=== PATIENT | female | born 1940 | race Caucasian/White ===

== ENCOUNTER → 2016-06-09 | Outpatient (CLI) | payer MEDICARE ==
--- NOTE | 2016-06-09 12:42 | RAD ---
Right shoulder, 3 views, 06/09/2016: History: Pain, arthritis There is severe narrowing of the glenohumeral joint with subchondral sclerosis, cyst formation and spurring. There are also degenerative changes at rotator cuff insertion sites on the greater tuberosity. There is mild subacromial spurring. No fracture or dislocation is identified. IMPRESSION: 1. Severe degenerative change. 2. No acute bony abnormality is detected.
== END | disposition home or self-care (01) ==
LOC: DXRAD 11:55
PROVIDERS: ATTEND Orthopaedic Surgery
DX: M25.511 Pain in right shoulder (principal); M19.011 Primary osteoarthritis, right shoulder
CPT/HCPCS: 73030

== ENCOUNTER 2016-08-01 12:24 | Inpatient (IN) | payer MEDICARE ==
[~2016-08-01] VITALS: Ht 171.4 cm; Wt 161.6 kg
[2016-08-01 12:59] VITALS: BP 178/68
[2016-08-01 13:00] VITALS: BP 178/68
[2016-08-01] MEDS ORDERED: CLON0.1T PO (14:03)
[2016-08-01] MEDS ORDERED: GABA-586 PO (14:04)
[2016-08-01] MEDS ORDERED: FURO40TA4 PO (14:04)
[2016-08-01] MEDS ORDERED: SIMV20TA3 PO (14:05)
[2016-08-01] MEDS ORDERED: LEVO200T5 PO (14:05)
[2016-08-01] MEDS ORDERED: GLIM2TAB2 PO (14:05)
[2016-08-01 14:06] LABS: BASO % 0 % (0-3); EOS # 0.1 x10^3/uL (0.0-0.7); EOS % 2 % (0-3); HEMATOCRIT 36.7 % (36.0-47.0); HEMOGLOBIN 12.5 g/dL (12.0-15.5); LYMPH # 0.9 x10^3/uL (1.0-4.8); LYMPH % 14 % (24-48); MEAN CORPUSCULAR HEMOGLOBIN 32 pg (25-35); MEAN CORPUSCULAR HGB CONC 34 g/dL (31-37); MEAN CORPUSCULAR VOLUME 93 fL (79-100); MONO # 0.5 x10^3/uL (0.0-1.1); MONO % 7 % (0-9); NEUT # 4.9 x10^3uL (1.8-7.7); NEUT % 77 % (31-73); PLATELET COUNT 209 x10^3/uL (140-400); RED BLOOD COUNT 3.95 x10^6/uL (3.50-5.40); RED CELL DISTRIBUTION WIDTH 13.4 % (11.5-14.5); WHITE BLOOD COUNT 6.4 x10^3/uL (4.0-11.0)
[2016-08-01] MEDS ORDERED: ALBU18HF IH (14:06)
[2016-08-01] MEDS ORDERED: MULT1TAB52 PO (14:06)
[2016-08-01] MEDS ORDERED: FISH12002 PO (14:06)
[2016-08-01] MEDS ORDERED: ALBU2.5V5 NEB (14:07)
[2016-08-01] MEDS ORDERED: METO50TA2 PO (14:09)
[2016-08-01] MEDS ORDERED: TRAM1TAB4 PO (14:09)
[2016-08-01 14:24] LABS: ALBUMIN 3.4 g/dL (3.4-5.0); CALCIUM 8.8 mg/dL (8.5-10.1); CREATININE 1.1 mg/dL (0.6-1.0); GFR 48.6; TOTAL BILIRUBIN 0.4 mg/dL (0.2-1.0); TOTAL PROTEIN 6.7 g/dL (6.4-8.2)
[2016-08-01] MEDS ORDERED: traMADol/APAP 37.5/325 1 TAB TABLET PO PRN (14:30)
[2016-08-01] MEDS ORDERED: ALBUTEROL SULFATE 2.5 MG/3 ML NEBU. NEB SCH (14:30)
[2016-08-01] MEDS ORDERED: ALBUTEROL SULFATE 8GM INHALER. IH PRN (14:30)
--- NOTE | 2016-08-01 14:41 | RAD ---
Indication: COPD and shortness of breath. Time of exam 1506 hours. Correlation is made with prior chest from 04/17/2016. The heart size is stable. Lungs are clear. No infiltrates are detected. No effusion or pneumothorax is seen. Impression: Stable chest. No acute feature is detected.
[2016-08-01] MEDS: GABAPENTIN 300 MG CAPSULE. PO SCH ×2 (15:14→21:05)
[2016-08-01 15:16] LABS: CLARITY,URINE CLEAR; COLOR,URINE YELLOW; GLUCOSE,URINE NEG (NEG)
[2016-08-01 15:17] LABS: BILIRUBIN,URINE NEG (NEG); NITRITE,URINE NEG (NEG); RBC,URINE 0 /HPF (0-2); UROBILINOGEN,URINE 0.2 mg/dL (0.2 mg/dL)
[2016-08-01 15:18] LABS: BGAS PH 7.37 (7.35-7.45)
[2016-08-01 15:18] LABS: BACTERIA,URINE 0 /HPF (0-FEW); SQUAMOUS EPITHELIAL CELL,UR OCC /LPF
[2016-08-01 15:48] VITALS: BP 139/53
[2016-08-01] MEDS ORDERED: IOHEXOL 300 MG/ML 75 ML VIAL. IV ONE (16:15)
--- NOTE | 2016-08-01 16:21 | EKG ---
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 RI6.01 Unconfirmed report No previous ECG available for comparison Electronically Signed On 08-05-2016 9:43:14 CDT by Diaz Tompkins
--- NOTE | 2016-08-01 17:16 | RAD ---
PQRS Compliance Statement: One or more of the following individualized dose reduction techniques were utilized for this examination: 1. Automated exposure control 2. Adjustment of the mA and/or kV according to patient size 3. Use of iterative reconstruction technique CT CHEST WITH CONTRAST, PULMONARY ANGIOGRAM History: Short of Breath, hx of COPD Comparison: None. Technique: Helical CT of the chest was performed after the administration of 75ml IV Omni 300 intravenous contrast according to PE protocol. Axial and coronal reconstructions were obtained. 3-D MIP images were constructed to better evaluate the pulmonary arteries. Findings: Pulmonary arteries are adequately opacified to the segmental pulmonary artery level. There is no evidence of pulmonary embolism. Subsegmental pulmonary arteries are not well evaluated. There is no thoracic aortic dissection. The great vessels are normal in caliber. Question left thyroid nodule. Right thyroid lobe not definitely seen. No axillary adenopathy. No mediastinal adenopathy. Subcentimeter hilar lymph nodes. Coronary artery disease. Mild cardiomegaly. No pericardial effusion. No pleural effusion. Left posterior inferior calcified pleural plaque. Minimal dependent opacities in the trachea, probably retained secretions or mucous. Mild respiratory motion artifact. Mild scarring or atelectasis medially in the right middle lobe. Mild groundglass and linear opacities in the posterior left lower lobe may be atelectasis or early bronchopneumonia. Cholecystectomy. There is left adrenal mass measuring 5.3 x 3.4 cm. The mass contains macroscopic fat and is therefore compatible with a myelolipoma. No compression fracture in the thoracic spine is identified. IMPRESSION: 1. There is no CT evidence of pulmonary embolus to the segmental pulmonary artery level. 2. Question left thyroid nodule. Consider outpatient thyroid ultrasound if not previously performed. 3. Mild groundglass and linear opacities in the posterior left lower lobe may be atelectasis or early bronchopneumonia or scarring. 4. Mild cardiomegaly. 5. Left adrenal myelolipoma. Electronically signed by: Adolfo Freedman MD (08/01/2016 5:13 PM)
[2016-08-01 18:20] VITALS: BP 146/77
[2016-08-01] MEDS ORDERED: cefTRIAXone SODIUM 1 GM VIAL IV ONE (18:32)
[2016-08-01] MEDS ORDERED: IV NORMAL SALINE 50ML 50 ML ONE (18:32)
[2016-08-01] MEDS ORDERED: IV NORMAL SALINE 250ML 250 ML ONE (18:35)
[2016-08-01] MEDS: IPRATRPIUM/ALBUTEROL 0.5/2.5MG 3 ML NEBU. NEB SCH (20:06)
[2016-08-01] MEDS: ENOXAPARIN ** NOTE DOSE ** SYRINGE SQ SCH (21:04)
[2016-08-01] MEDS: cloNIDine HCL 0.1 MG TABLET PO SCH (21:05)
[2016-08-01] MEDS: METOPROLOL TART IMMED RELEASE 50 MG TABLET PO SCH (21:05)
[2016-08-01] MEDS: SIMVASTATIN 20 MG TABLET PO SCH (21:05)
[2016-08-01 23:43] VITALS: BP 119/69
[2016-08-02 05:13] VITALS: BP 105/60
[2016-08-02] MEDS: IPRATRPIUM/ALBUTEROL 0.5/2.5MG 3 ML NEBU. NEB SCH ×4 (05:49→20:14)
[2016-08-02 06:59] LABS: BASO % 0 % (0-3); EOS # 0.1 x10^3/uL (0.0-0.7); EOS % 2 % (0-3); HEMATOCRIT 36.3 % (36.0-47.0); HEMOGLOBIN 12.5 g/dL (12.0-15.5); LYMPH # 1.6 x10^3/uL (1.0-4.8); LYMPH % 27 % (24-48); MEAN CORPUSCULAR HEMOGLOBIN 32 pg (25-35); MEAN CORPUSCULAR HGB CONC 35 g/dL (31-37); MEAN CORPUSCULAR VOLUME 93 fL (79-100); MONO # 0.5 x10^3/uL (0.0-1.1); MONO % 8 % (0-9); NEUT # 3.8 x10^3uL (1.8-7.7); NEUT % 63 % (31-73); PLATELET COUNT 193 x10^3/uL (140-400); RED BLOOD COUNT 3.91 x10^6/uL (3.50-5.40); RED CELL DISTRIBUTION WIDTH 13.2 % (11.5-14.5)
[2016-08-02 07:05] LABS: CALCIUM 8.5 mg/dL (8.5-10.1); CREATININE 1.1 mg/dL (0.6-1.0); GFR 48.6; POTASSIUM 3.5 mmol/L (3.5-5.1)
[2016-08-02] MEDS: LEVOTHYROXINE 100 MCG TABLET PO SCH (07:24)
[2016-08-02] MEDS ORDERED: PNEUMOC CONJ VACC 23-VALENT 0.5 ML VIAL. VAX IM ONE (09:00)
[2016-08-02] MEDS: ENOXAPARIN ** NOTE DOSE ** SYRINGE SQ SCH ×2 (09:04→19:54)
[2016-08-02] MEDS: GABAPENTIN 300 MG CAPSULE. PO SCH ×3 (09:06→19:53)
[2016-08-02] MEDS: FUROSEMIDE 40 MG TABLET PO SCH (09:06)
[2016-08-02] MEDS: cloNIDine HCL 0.1 MG TABLET PO SCH ×2 (09:07→19:53)
[2016-08-02] MEDS: OMEGA-3 FATTY ACIDS/FISH OIL 1,000 MG CAPSULE. PO SCH (09:08)
[2016-08-02] MEDS: METOPROLOL TART IMMED RELEASE 50 MG TABLET PO SCH ×2 (09:08→19:53)
[2016-08-02] MEDS: MULTIVITAMIN with MINERAL TABLET. PO SCH (09:08)
[2016-08-02] MEDS: GLIMEPIRIDE 2 MG TABLET PO SCH (09:08)
[2016-08-02 10:01] VITALS: BP 117/81
[2016-08-02 14:52] VITALS: BP 149/66
[2016-08-02 19:46] VITALS: BP 131/71
[2016-08-02] MEDS: SIMVASTATIN 20 MG TABLET PO SCH (19:52)
[2016-08-02 22:03] VITALS: BP 138/72
[2016-08-02] MEDS: OXYMETAZOLINE 0.05% NASAL SPRAY 15ML BOTTLE. NS PRN (22:09)
--- NOTE | 2016-08-03 00:20 | PN ---
DATE: 08/02/2016 SUBJECTIVE: A 76-year-old female in with acute respiratory failure, positive D-dimer. CTA negative, may have pneumonic process; however, the patient continues on IV antibiotic therapy, aggressive pulmonary toilet. The patient did have positive lactic acid, was septic, that has come down. Blood sugars in the 150s. Blood counts were basically stable as was her urine. In any case, the patient made good progress, has been making fairly good progress, still coarse breath sounds throughout. She is alert and oriented, feels a little better overall. OBJECTIVE: VITAL SIGNS: The patient's blood pressure is 120/80, respiratory rate 16, pulse 90, afebrile, oxygen saturation up to 96% on 3 liters. LUNGS: Show coarse breath sounds throughout, rhonchi noted throughout, but moving some air. CARDIOVASCULAR: Regular sinus rhythm. ABDOMEN: Soft, nontender. EXTREMITIES: No clubbing, cyanosis or edema. IMPRESSION: Bronchial pneumonia, sepsis, acute respiratory failure. PLAN: As above. YARI MANCUSO MD DR: SANTINO/latha JOB#: [id number] / [id number]
[2016-08-03] MEDS: LEVOTHYROXINE 100 MCG TABLET PO SCH (05:33)
[2016-08-03 05:35] VITALS: BP 151/66
[2016-08-03] MEDS: IPRATRPIUM/ALBUTEROL 0.5/2.5MG 3 ML NEBU. NEB SCH ×4 (05:55→22:12)
[2016-08-03] MEDS: cloNIDine HCL 0.1 MG TABLET PO SCH ×2 (08:37→21:11)
[2016-08-03] MEDS: MULTIVITAMIN with MINERAL TABLET. PO SCH (08:37)
[2016-08-03] MEDS: FUROSEMIDE 40 MG TABLET PO SCH (08:37)
[2016-08-03] MEDS: METOPROLOL TART IMMED RELEASE 50 MG TABLET PO SCH ×2 (08:37→21:11)
[2016-08-03] MEDS: GLIMEPIRIDE 2 MG TABLET PO SCH (08:37)
[2016-08-03] MEDS: GABAPENTIN 300 MG CAPSULE. PO SCH ×3 (08:37→21:10)
[2016-08-03] MEDS: OMEGA-3 FATTY ACIDS/FISH OIL 1,000 MG CAPSULE. PO SCH (08:37)
[2016-08-03] MEDS: ENOXAPARIN ** NOTE DOSE ** SYRINGE SQ SCH ×2 (08:40→21:11)
[2016-08-03] MEDS: OXYMETAZOLINE 0.05% NASAL SPRAY 15ML BOTTLE. NS PRN ×2 (10:31→21:12)
[2016-08-03 10:41] VITALS: BP 129/69
--- NOTE | 2016-08-03 11:30 | CARD ---
APPROVED REPORT EXAM: Two-dimensional and M-mode echocardiogram with Doppler and color Doppler. Other Information Quality : Fair Technically limited study due to body habitus. INDICATION Dyspnea Respiratory Failure RISK FACTORS Obesity 2D DIMENSIONS RVDd3.0 (2.9-3.5cm)Left Atrium(2D)3.8 (1.6-4.0cm) IVSd1.0 (0.7-1.1cm)Aortic Root(2D)3.2 (2.0-3.7cm) LVDd5.3 (3.9-5.9cm)LVOT Diameter2.5 (1.8-2.4cm) PWd1.2 (0.7-1.1cm)LVDs3.6 (2.5-4.0cm) FS (%) 32.3 %SV81.8 ml LVEF(%)60.1 (>50%) Aortic Valve AoV Peak Adolfo.143.2cm/sAoV VTI30.5cm AO Peak GR.8.2mmHgLVOT Peak Adolfo.100.9cm/s LVOT VTI 26.51cmAO Mean GR.5mmHg BRI (VMAX)3.19rb4RGD (VTI)4.33cm2 Mitral Valve MV E Anidaeau42.0cm/sMV DECEL IIRL678gw MV A Ixmyoipe141.2cm/sE/A Ratio0.7 Tricuspid Valve TR P. Kojoobcl040ol/sRAP CRAEFSIB8isJa TR Peak Gr.91zdHaISQB35gtEh LEFT VENTRICLE The left ventricle is normal size. There is mild concentric left ventricular hypertrophy. Left ventri mann systolic function is low normal. The Ejection Fraction is 50-55%. Wall motion not well visualized . Grossly no obvious abnormalities noted. Transmitral Doppler flow pattern is Grade I-abnormal relaxa tion pattern. RIGHT VENTRICLE The right ventricle is normal size. There is normal right ventricular wall thickness. The right ventr icular systolic function is normal. ATRIA The left atrium size is normal. The right atrium size is normal. The interatrial septum is intact wit h no evidence for an atrial septal defect or patent foramen ovale as noted on 2-D or Doppler imaging. AORTIC VALVE The aortic valve is normal in structure and function. Doppler and Color Flow revealed no significant aortic regurgitation. There is no significant aortic valvular stenosis. MITRAL VALVE The mitral valve is calcified but opens well. There is no evidence of mitral valve prolapse. There is no mitral valve stenosis. Doppler and Color Flow revealed no mitral valve regurgitation noted. TRICUSPID VALVE The tricuspid valve is normal in structure and function. Doppler and Color Flow revealed physiologica l tricuspid regurgitation. The PA pressure was estimated at 30 mmHg. There is no tricuspid valve sten osis. PULMONIC VALVE The pulmonic valve is not well visualized. Doppler and Color Flow revealed trace pulmonic valvular re gurgitation. There is no pulmonic valvular stenosis. GREAT VESSELS The aortic root is normal in size. The ascending aorta is not well seen. The IVC is dilated. PERICARDIAL EFFUSION There is no evidence of significant pericardial effusion. Critical Notification Critical Value: No <Conclusion> Left ventricle systolic function is low normal. The Ejection Fraction is 50-55%. Wall motion not well visualized. Grossly no obvious abnormalities noted. Technically difficult study.
[2016-08-03] MEDS: predniSONE 20 MG TABLET PO SCH (18:52)
[2016-08-03 19:28] VITALS: BP 136/77
[2016-08-03] MEDS: SIMVASTATIN 20 MG TABLET PO SCH (21:11)
[2016-08-03 22:34] VITALS: BP 128/72
[2016-08-04] MEDS: LEVOTHYROXINE 100 MCG TABLET PO SCH (05:40)
[2016-08-04 05:49] VITALS: BP 153/69
[2016-08-04] MEDS: IPRATRPIUM/ALBUTEROL 0.5/2.5MG 3 ML NEBU. NEB SCH ×4 (07:17→20:41)
[2016-08-04] MEDS: cloNIDine HCL 0.1 MG TABLET PO SCH ×2 (08:30→21:04)
[2016-08-04] MEDS: MULTIVITAMIN with MINERAL TABLET. PO SCH (08:30)
[2016-08-04] MEDS: predniSONE 20 MG TABLET PO SCH (08:30)
[2016-08-04] MEDS: OMEGA-3 FATTY ACIDS/FISH OIL 1,000 MG CAPSULE. PO SCH (08:30)
[2016-08-04] MEDS: GABAPENTIN 300 MG CAPSULE. PO SCH ×3 (08:30→21:04)
[2016-08-04] MEDS: ENOXAPARIN ** NOTE DOSE ** SYRINGE SQ SCH ×2 (08:30→21:04)
[2016-08-04] MEDS: METOPROLOL TART IMMED RELEASE 50 MG TABLET PO SCH ×2 (08:31→21:04)
[2016-08-04] MEDS: FUROSEMIDE 40 MG TABLET PO SCH (08:31)
[2016-08-04] MEDS: GLIMEPIRIDE 2 MG TABLET PO SCH (08:31)
[2016-08-04 10:38] VITALS: BP 168/79
[2016-08-04 14:37] VITALS: BP 184/79
[2016-08-04 18:30] VITALS: BP 153/65
--- NOTE | 2016-08-04 19:15 | PN ---
DATE: 08/03/2016 SUBJECTIVE: The patient with acute respiratory failure, exacerbation of chronic obstructive pulmonary disease, doing somewhat better, breathing a little bit easier, but still extremely short of breath and still extremely weak. OBJECTIVE: VITAL SIGNS: Blood pressure , respirations 22, pulse 78, afebrile, oxygen saturation 95% on 3 liters. LUNGS: Diminished throughout, poor movement of air, but somewhat improved from where they were. ABDOMEN: Protuberant. CARDIOVASCULAR: Regular sinus rhythm. EXTREMITIES: No clubbing, cyanosis or edema. The patient seems to be making fairly good progress overall. LABORATORY DATA: Blood sugars are in the 100s, still reasonable there. The patient's lactic acid that was elevated has come down into normal range. BNP is 87. IMPRESSION: Acute respiratory failure, acute exacerbation of chronic obstructive pulmonary disease, bronchitis acute. PLAN: The patient continued to be monitored carefully, make further evaluation on her as indicated and continue with IV antibiotic therapy and steroid therapy tapering doses. YARI MANCUSO MD DR: SANTINO/latha JOB#: [id number] / [id number]
[2016-08-04] MEDS: SIMVASTATIN 20 MG TABLET PO SCH (21:04)
[2016-08-04] MEDS: OXYMETAZOLINE 0.05% NASAL SPRAY 15ML BOTTLE. NS PRN (21:07)
--- NOTE | 2016-08-05 03:54 | PN ---
DATE: 08/04/2016 SUBJECTIVE: The patient with acute exacerbation of COPD, acute respiratory failure, doing much better in that regard; however, probably has some type of fistula coming from her umbilical area. Wound care has seen the patient and made recommendations. We are going to be doing a CT scan of her abdomen to look for any fistula likely forming there. Otherwise, the patient is resting fairly comfortably, making fairly good progress overall in that regard. Ejection fraction is 50-55%, making good progress on that. PHYSICAL EXAMINATION: VITAL SIGNS: Blood pressure 170/80, respiratory rate 24, pulse 76, she is afebrile. GENERAL: The patient is alert and oriented. HEENT: Mouth and throat were normal. NECK: Supple. LUNGS: Diminished, but clear than they have been, much better. CARDIOVASCULAR: Regular sinus rhythm. ABDOMEN: Soft, nontender, no rebound or guarding, protuberant. Drainage from the umbilical area consistent with possible fistula. EXTREMITIES: No clubbing or cyanosis. Trace edema. NEUROLOGIC: Intact. IMPRESSION: Bronchial pneumonia of unknown etiology, sepsis, acute respiratory failure, fistula formation of the abdominal wall. PLAN: We will go ahead and continue to monitor the patient accordingly. Further evaluation per those results. Further evaluation on her as indicated. YARI MANCUSO MD DR: SANTINO/latha JOB#: [id number] / [id number]
[2016-08-05] MEDS: LEVOTHYROXINE 100 MCG TABLET PO SCH (05:15)
[2016-08-05] MEDS: IPRATRPIUM/ALBUTEROL 0.5/2.5MG 3 ML NEBU. NEB SCH ×2 (05:40→09:38)
[2016-08-05 05:49] VITALS: BP 133/69
[2016-08-05 06:32] LABS: CALCIUM 8.3 mg/dL (8.5-10.1); CREATININE 0.9 mg/dL (0.6-1.0); GFR 61.2; POTASSIUM 3.5 mmol/L (3.5-5.1)
[2016-08-05] MEDS: FUROSEMIDE 40 MG TABLET PO SCH (08:06)
[2016-08-05] MEDS: MULTIVITAMIN with MINERAL TABLET. PO SCH (08:06)
[2016-08-05] MEDS: predniSONE 20 MG TABLET PO SCH (08:06)
[2016-08-05] MEDS: OMEGA-3 FATTY ACIDS/FISH OIL 1,000 MG CAPSULE. PO SCH (08:06)
[2016-08-05] MEDS: GLIMEPIRIDE 2 MG TABLET PO SCH (08:06)
[2016-08-05] MEDS: GABAPENTIN 300 MG CAPSULE. PO SCH (08:06)
[2016-08-05] MEDS: ENOXAPARIN ** NOTE DOSE ** SYRINGE SQ SCH (08:07)
[2016-08-05] MEDS: METOPROLOL TART IMMED RELEASE 50 MG TABLET PO SCH (08:07)
[2016-08-05] MEDS: cloNIDine HCL 0.1 MG TABLET PO SCH (08:07)
--- NOTE | 2016-08-05 09:20 | RAD ---
Fistulogram, canceled study, 08/05/2016: History: Draining wound The patient presents with an inflamed appearing area in the anterior abdominal wall at the midline with mild skin deformity. There is puckering of the skin with a tiny bubble of fluid in this region. The fluid appears to be emanating from a crevice or crack in the skin. Following cleansing of this area with Betadine attempts were made at cannulation of a possible fistula tract with a 5 Hungarian infant feeding tube. No fistula tract could be encountered or cannulated. A fistulogram is therefore not visible. Sonographic or CT evaluation of this region may be useful in excluding a significant underlying fluid collection, if clinically indicated.
[2016-08-05 10:43] VITALS: BP 147/81
[2016-08-05] MEDS ORDERED: PRED20TA PO (11:59)
[2016-08-05] MEDS ORDERED: levoFLOXacin 500 MG TABLET PO SCH (17:00)
[2016-08-05] MEDS ORDERED: CEFPODOXIME PROXETIL 100 MG TABLET PO SCH (21:00)
--- NOTE | 2016-08-05 22:33 | DS ---
DATE OF DISCHARGE: 08/05/2016 HOSPITAL COURSE: The patient is a 76-year-old female who came in the office with acute respiratory distress, acute respiratory failure. The patient was placed on steroids, IV antibiotic therapy. The patient also had some bronchial pneumonia. She made excellent progress during the rest of her hospitalization. There were no complications noted. Sugars are a little bit on the high side. She does have a history of diabetes. Her D-dimer is elevated. CTA was negative. The patient made good progress. She also was thought to have a fistula above the umbilicus, but we are unable to determine. There was no fistula they could find with fistula induced type of CTA. In any case, the patient made good progress during the rest of her hospitalization. She was discharged home and will be followed up as an outpatient. IMPRESSION: Therefore, acute respiratory failure, acute exacerbation of chronic obstructive pulmonary disease, bronchial pneumonia, acute, type 2 diabetes, morbid obesity. The patient will be monitored as an outpatient, make further evaluation. Her EKG was unremarkable as well. YARI MANCUSO MD DR: SANTINO/latha JOB#: [id number] / [id number]
== END 2016-08-05 13:15 | disposition home health service (06) | DRG 871 ==
LOC: 1 SOUTH 12:24
PROVIDERS: ADMIT Family Medicine; ATTEND Family Medicine
DX: A41.9 Sepsis, unspecified organism (principal); J18.0 Bronchopneumonia, unspecified organism; J96.01 Acute respiratory failure with hypoxia; J44.0 Chronic obstructive pulmonary disease with (acute) lower respiratory infection; J44.1 Chronic obstructive pulmonary disease with (acute) exacerbation; Z68.43 Body mass index [BMI] 50.0-59.9, adult; E11.9 Type 2 diabetes mellitus without complications; E66.01 Morbid (severe) obesity due to excess calories; J20.9 Acute bronchitis, unspecified; I10 Essential (primary) hypertension; E78.00 Pure hypercholesterolemia, unspecified; Z90.710 Acquired absence of both cervix and uterus; Z81.8 Family history of other mental and behavioral disorders; Z83.3 Family history of diabetes mellitus
CPT/HCPCS: 36415; 71020; 71275; 76080; 80048; 80053; 81001; 82803; 82947; 83605; 83880; 85027; 85379; 87070; 87071; 87075; 87086; 90732; 93005; 93306; 94640; 94760; J0696; J1650; J1956; J7050; J7512; J7620; 97110; 97530; 97535

== ENCOUNTER → 2016-09-16 | Outpatient (CLI) | payer MEDICARE ==
[~2016-09-16] MED LIST: ALBU18HF IH; ALBU2.5V5 NEB; CLON0.1T PO; FISH12002 PO; FURO40TA4 PO; GABA-586 PO; GLIM2TAB2 PO; IOHEXOL 240 MG/ML 50ML VIAL. PO ONE; IOHEXOL 300 MG/ML 75 ML VIAL. IV ONE; LEVO200T5 PO; METO50TA2 PO; MULT1TAB52 PO; PRED20TA PO; SIMV20TA3 PO; TRAM1TAB4 PO
--- NOTE | 2016-09-16 10:36 | RAD ---
INDICATION:WOUND FROM HERNIA REPAIR IN 2009 COMPARISON: None. FINDINGS: The patient was brought to the procedure suite and the procedure was discussed with the patient. At that point in time a academic coach image was obtained over the suspected fistula at the anterior abdominal wall. The skin was then cleaned in the normal sterile fashion. A catheter was then placed to the orifice of the fistula and attempt was made to cannulate the fistula but it is too small to cannulate. At that point in time sterile iodinated contrast was attempted to be injected into the fistula but only pooled at the skin surface. A total of 5 fluoroscopic images were obtained. 0 minutes of fluoroscopy time was utilized. IMPRESSION: Attempt was made to perform fistulogram but the suspected fistula is not large enough to cannulate.
--- NOTE | 2016-09-16 11:11 | RAD ---
INDICATION: Nonhealing wound COMPARISON: None. TECHNIQUE: Axial CT images were obtained through the abdomen and pelvis with intravenous contrast. Coronal reformations were processed. FINDINGS: Mild bronchiectasis at left lower lung. There are some mild linear opacities at lower lungs. Given location could be atelectasis. Partial calcification of pleura at left lung base. Small hiatal hernia. Severe calcific atherosclerosis. No intrahepatic bile duct dilation. Postcholecystectomy. No peripancreatic edema. Spleen unremarkable. Partial fat-containing lesion in the left adrenal region measuring up to 58 x 39 mm. No hydronephrosis. Bladder is partially distended. Colonic diverticulosis. The appendix does not appear grossly inflamed. At the ventral abdominal wall there is subcutaneous soft tissue density seen within the fat measuring up to 45 x 40 mm. Loops of bowel are seen coursing adjacent to the structure with staple line seen within the bowel. There is ventral fat-containing abdominal wall hernia in this region. Degenerative changes of left greater than right hip. Degenerative changes spine. Grade 1 anterolisthesis of L5 on S1. IMPRESSION: 1. At the ventral abdominal wall subcutaneous soft tissues there is a confluent region of soft tissue density within the region. Could be secondary to causes such as confluent fibrosis or phlegmon formation. There are multiple loops of small bowel coursing immediately adjacent to the structure including a small bowel loop with staple line within. A fistula is not excluded on this examination given the proximity. 2. No evidence of bowel obstruction or appendicitis. 3. Calcific atherosclerosis. 4. Partially fat-containing left adrenal mass which could be seen with a myelolipoma. PQRS Compliance Statement: One or more of the following individualized dose reduction techniques were utilized for this examination: 1. Automated exposure control 2. Adjustment of the mA and/or kV according to patient size 3. Use of iterative reconstruction technique
== END | disposition home or self-care (01) ==
LOC: CT 09:30
PROVIDERS: ATTEND Surgery
DX: E27.8 Other specified disorders of adrenal gland (principal); I70.8 Atherosclerosis of other arteries; N89.8 Other specified noninflammatory disorders of vagina; J44.9 Chronic obstructive pulmonary disease, unspecified; E11.65 Type 2 diabetes mellitus with hyperglycemia; L29.9 Pruritus, unspecified; K42.9 Umbilical hernia without obstruction or gangrene; R35.0 Frequency of micturition
CPT/HCPCS: 74177; 76080

== ENCOUNTER 2017-02-10 11:05 | Emergency (ER) | payer MEDICARE ==
[~2017-02-10] VITALS: Ht 172.7 cm; Wt 160.0 kg
[~2017-02-10 11:05] MED LIST changes: -IOHEXOL 240 MG/ML 50ML VIAL. PO ONE; -IOHEXOL 300 MG/ML 75 ML VIAL. IV ONE; -METO50TA2 PO; +METO50TA6 PO
--- NOTE | 2017-02-10 11:58 | RAD ---
Right hand, 3 views, 02/10/2017: History: Fall, hand pain There is patchy bony demineralization. No acute fracture or dislocation is identified. There is severe degenerative change at the first CMC joint with periarticular ossifications. There are additional degenerative changes at the wrist and at scattered interphalangeal joints. IMPRESSION: No acute bony abnormality is detected.
--- NOTE | 2017-02-10 11:59 | RAD ---
Right knee, 3 views, 02/10/2017: History: Fall, knee pain and swelling, redness There is severe narrowing of the knee joint with moderate marginal spurring. There is mild associated chronic lateral subluxation of the tibia relative to the distal femur. Extensive spurring is present the patellofemoral articulation. No acute fracture is identified. A small joint effusion is present. IMPRESSION: 1. Severe degenerative change. 2. Small knee joint effusion. 3. No acute bony abnormality is detected.
--- NOTE | 2017-02-10 12:33 | PHYS DOC ---
Past History Past Medical History: COPD, Diabetes, Hypertension, Hypothyroid Past Surgical History: Cholecystectomy Smoking: Non-smoker Adult General Chief Complaint Chief Complaint: KNEE INJURY HPI HPI 76-year-old female patient with morbid obesity brought in by EMS because of injury to right knee and right hand. 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 Patient complaining of pain in right hand and right knee and states she was not able to ambulate because of the pain in her knee. Patient rated her pain 3/10 after EMS applied temporally immobilizer and doesn't want pain medication in ER. Patient denies focal neuro deficit, nausea and vomiting, chest pain and shortness of breath Review of Systems Review of Systems Constitutional: Denies fever or chills [] Eyes: Denies change in visual acuity, redness, or eye pain [] HENT: Denies nasal congestion or sore throat [] Respiratory: Denies cough or shortness of breath [] Cardiovascular: No additional information not addressed in HPI [] GI: Denies abdominal pain, nausea, vomiting, bloody stools or diarrhea [] : Denies dysuria or hematuria [] Musculoskeletal: Reports joint pain [] Integument: Denies rash or skin lesions [] Neurologic: Denies headache, focal weakness or sensory changes [] Endocrine: Denies polyuria or polydipsia [] All other systems were reviewed and found to be within normal limits, except as documented in this note. Allergies Allergies Allergies Coded Allergies Type Severity Reaction Last Updated Verified Penicillins Allergy Intermediate Hives 08/01/16 Yes macadamia nut oil Allergy Unknown 08/01/16 Yes Physical Exam Physical Exam Constitutional: Well developed, well nourished, mild distress, non-toxic appearance, morbid obesity. [] HENT: Normocephalic, atraumatic, bilateral external ears normal, oropharynx moist, no oral exudates, nose normal. [] Eyes: PERRLA, EOMI, conjunctiva normal, no discharge. [] Neck: Normal range of motion, no tenderness, supple, no stridor. [] Cardiovascular:Heart rate regular rhythm, no murmur [] Lungs & Thorax: Bilateral breath sounds clear to auscultation [] Abdomen: Bowel sounds normal, soft, no tenderness, no masses, no pulsatile masses. [] Skin: Warm, dry, no erythema, no rash, right hand contusion [] Back: No tenderness, no CVA tenderness. [] Extremities: Right hand contusion and dorsal of fourth and fifth metacarpal area without deformity or focal neuro deficit. Right knee in cardboard splint with mild tenderness without deformity, painful range of motion of right lower extremity Neurologic: Alert and oriented X 3, normal motor function, normal sensory function, no focal deficits noted. [] Psychologic: Affect normal, judgement normal, mood normal. [] EKG EKG [] Radiology/Procedures Radiology/Procedures [] Course & Med Decision Making Course & Med Decision Making Pertinent Imaging studies reviewed. (See chart for details) Evaluation of patient in ER showed 76-year-old female patient with a fall and injury to right hand and right knee. Patient had unremarkable except hand and knee and Richard wrap applied by ER nurse on right knee and patient ambulated without problem. Patient has a walker at home and instructed to use her walker. Patient instructed to apply ice on her knee and hand and follow up with her primary care physician. Dragon Disclaimer Dragon Disclaimer This electronic medical record was generated, in whole or in part, using a voice recognition dictation system. Departure Departure: Impression: Primary Impression: Right knee sprain Additional Impressions: Contusion of right hand Fall from standing Morbid obesity Disposition: 01 HOME, SELF-CARE (At 1246) Condition: IMPROVED Referrals: YARI MANCUSO MD (PCP) Patient Instructions: Contusion, Fall Prevention and Home Safety, Knee - Cartilage (Meniscus) Injury Additional Instructions: Follow up with your primary care physician in 2-3 days Apply ice on the affected area Used your home walker Scripts Tramadol Hcl (ULTRAM) 50 Mg Tablet 50 MG PO PRN Q6HRS Y for PAIN, #20 TAB Prov: MARISSA PAGE MD 02/10/17 Problem Qualifiers MARISSA PAGE MD Feb 10, 2017 12:33
[2017-02-10] MEDS ORDERED: TRAM-48 PO (12:52)
[2017-02-10 13:01] VITALS: BP 121/64
== END 2017-02-10 13:01 | disposition home or self-care (01) ==
LOC: ER 11:05
DX: S83.91XA Sprain of unspecified site of right knee, initial encounter (principal); S60.221A Contusion of right hand, initial encounter; E66.01 Morbid (severe) obesity due to excess calories; E03.9 Hypothyroidism, unspecified; E11.9 Type 2 diabetes mellitus without complications; I10 Essential (primary) hypertension; J44.9 Chronic obstructive pulmonary disease, unspecified; Z68.43 Body mass index [BMI] 50.0-59.9, adult; Z88.0 Allergy status to penicillin; Z91.018 Allergy to other foods; W19.XXXA Unspecified fall, initial encounter; Y93.89 Activity, other specified; Y99.8 Other external cause status; Y92.89 Other specified places as the place of occurrence of the external cause
CPT/HCPCS: 73130; 73562; 99284

== ENCOUNTER → 2017-08-04 | Outpatient (CLI) | payer MEDICARE ==
[~2017-08-04] MED LIST changes: +TRAM-48 PO
--- NOTE | 2017-08-04 14:39 | RAD ---
DATE: 08/04/2017 EXAM: DIGITAL SCREEN BILAT W/CAD HISTORY: Routine screening COMPARISON: 04/17/2016, 03/27/2015 This study was interpreted with the benefit of Computerized Aided Detection (CAD). The breast parenchyma is heterogeneously dense, which could reduce sensitivity of mammography. Breast parenchyma level C. FINDINGS: There are multiple smooth nodules in both breasts. A 10 mm smooth nodule in the posteromedial aspect of the right breast has increased in size since previous studies. The other nodules appear stable. Scattered benign type calcifications are present. No suspicious microcalcifications have developed. Benign-appearing lymph node type densities are present in the axillary regions. IMPRESSION: Enlarging right breast nodule. Sonographic evaluation is suggested. BI-RADS CATEGORY: 0 INCOMPLETE: NEEDS ADDITIONAL IMAGING EVALUATION AND/OR PRIOR MAMMOGRAMS FOR COMPARISON. RECOMMENDED FOLLOW-UP: ADD ADDITIONAL IMAGING PQRS compliance statement: Patient information was entered into a reminder system with a target due date for the next mammogram. Mammography is a sensitive method for finding small breast cancers, but it does not detect them all and is not a substitute for careful clinical examination. A negative mammogram does not negate a clinically suspicious finding and should not result in delay in biopsying a clinically suspicious abnormality. "Our facility is accredited by the [employer] Mammography Program."
== END | disposition home or self-care (01) ==
LOC: MAMMO 13:37
PROVIDERS: ATTEND Family Medicine
DX: Z12.31 Encounter for screening mammogram for malignant neoplasm of breast (principal)
CPT/HCPCS: 77067

== ENCOUNTER → 2017-08-20 | Outpatient (CLI) | payer MEDICARE ==
--- NOTE | 2017-08-20 12:31 | RAD ---
Right breast ultrasound, 08/20/2017: History: Enlarging breast nodule A targeted ultrasound exam was performed of the upper inner right breast in the area of mammographic concern. At the 2:00 location approximately 7 cm from the nipple there is a smooth 8mm cyst which probably corresponds to the mammographic abnormality. There is an additional nearby 5 mm cyst. At the 2:30 location approximately 8 cm from the nipple there is a 7 mm smooth cyst. At the 3:00 location more centrally there is a dilated duct. No intraluminal abnormality is seen within that duct. No solid or suspicious breast nodules are seen. IMPRESSION: Multiple simple cysts in the upper inner right breast, one of which probably corresponds to the mammographic abnormality. Follow-up right mammography in 6 months and bilateral mammography at one year is suggested. BI-RADS 3-probably benign findings
== END | disposition home or self-care (01) ==
LOC: US 10:09
PROVIDERS: ATTEND Family Medicine
DX: R92.8 Other abnormal and inconclusive findings on diagnostic imaging of breast (principal)
CPT/HCPCS: 76641

== ENCOUNTER → 2018-08-15 | Outpatient (CLI) | payer MEDICARE ==
[~2018-08-15] MED LIST changes: -ALBU18HF IH; +ALBU2.5V8 IH
--- NOTE | 2018-08-15 14:59 | RAD ---
DATE: 08/15/2018 EXAM: DIGITAL DIAGNOSTIC BILATERAL, BREAST RIGHT HISTORY: Follow-up breast nodule COMPARISON: 08/04/2017 This study was interpreted with the benefit of Computerized Aided Detection (CAD). Breast Density: HETERO The breast parenchyma is heterogenously dense, which could reduce sensitivity of mammography. Breast parenchyma level C. FINDINGS: The fibroglandular pattern is nodular in character, particularly on the right. The nodule seen posteriorly in the upper inner quadrant on the previous study at approximately the 2:00 location has increased slightly in size. It currently measures 12-13 mm in greatest diameter compared to a measurement of 10-11 mm on the previous study. The other breast nodules appear stable. There are scattered benign type calcifications. No suspicious microcalcifications have developed. Right breast ultrasound, 08/15/2018: A targeted ultrasound exam of the upper inner quadrant was performed with comparison made to the exam of 08/20/2017. Multiple cysts are again identified. The largest of these lies at the 2:30 location approximately 8 cm from the nipple. It measures 12 mm and corresponds in size to the dominant nodule seen on the mammograms. Its margins are smooth. There is posterior acoustic enhancement. The features are that of a simple cyst. Several additional smaller simple cysts were identified in the upper inner quadrant. No solid mass is seen. There are prominent ducts centrally as also noted on the previous exam. IMPRESSION: 1. Multiple breast cysts, one of which in the upper inner quadrant on the right continues to increase in size. 2. No mammographic evidence of malignancy in either breast. Follow-up bilateral mammography in one year is suggested. BI-RADS CATEGORY: 2 BENIGN FINDING(S) RECOMMENDED FOLLOW-UP: 12M 12 MONTH FOLLOW-UP PQRS compliance statement: Patient information was entered into a reminder system with a target due date for the next mammogram. Mammography is a sensitive method for finding small breast cancers, but it does not detect them all and is not a substitute for careful clinical examination. A negative mammogram does not negate a clinically suspicious finding and should not result in delay in biopsying a clinically suspicious abnormality. "Our facility is accredited by the [employer] Mammography [employer]."
== END | disposition home or self-care (01) ==
LOC: MAMMO 13:40
PROVIDERS: ATTEND Family Medicine
DX: N60.01 Solitary cyst of right breast (principal); N63.12 Unspecified lump in the right breast, upper inner quadrant; N64.89 Other specified disorders of breast
CPT/HCPCS: 76641; 77066

== ENCOUNTER → 2019-08-21 | Outpatient (CLI) | payer MEDICARE ==
[~2019-08-21] MED LIST changes: -GLIM2TAB2 PO; +GLIM2TAB7 PO; +MULT-445 PO; -MULT1TAB52 PO; +SIMV20TA18 PO; -SIMV20TA3 PO
--- NOTE | 2019-08-23 12:59 | RAD ---
DATE: 08/21/2019 8:15 AM EXAM: DIGITAL SCREEN BILAT W/CAD HISTORY: Screening COMPARISON: 08/04/2017, 08/15/2018 bilateral mammograms, and targeted right breast ultrasound 08/15/2018 and 08/20/2017 Bilateral full field craniocaudal and mediolateral oblique images were obtained using digital technique. This study was interpreted with the benefit of Computerized Aided Detection (CAD). FINDINGS: Breast Density: SCATTERED The breast parenchyma shows scattered fibroglandular densities. Breast parenchyma level B Stable nodularity to the breasts, compatible with benign fibrocystic change. No suspicious masses, microcalcifications or architectural distortion is present to suggest malignancy in either breast. The visualized axillae are unremarkable. IMPRESSION: No mammographic evidence of malignancy. BI-RADS CATEGORY: 2 BENIGN FINDING(S) RECOMMENDED FOLLOW-UP: 12M 12 MONTH FOLLOW-UP Annual screening mammography is recommended, unless clinically indicated sooner based on symptoms or change in physical exam. PQRS compliance statement: Patient information was entered into a reminder system with a target due date 08/21/2020 for the next mammogram. Mammography is a sensitive method for finding small breast cancers, but it does not detect them all and is not a substitute for careful clinical examination. A negative mammogram does not negate a clinically suspicious finding and should not result in delay in biopsying a clinically suspicious abnormality. "Our facility is accredited by the [employer] Mammography [employer]."
== END ==
LOC: MAMMO 08:07
PROVIDERS: ATTEND Family Medicine
DX: Z12.31 Encounter for screening mammogram for malignant neoplasm of breast (principal)
CPT/HCPCS: 77067

== ENCOUNTER → 2020-08-21 | Outpatient (CLI) | payer MEDICARE ==
--- NOTE | 2020-08-22 17:41 | RAD ---
DATE: 08/21/2020 EXAM: DIGITAL SCREEN BILAT W/CAD HISTORY: Screening COMPARISON: Multiple prior exams back to 02/16/2014 This study was interpreted with the benefit of Computerized Aided Detection (CAD). Breast Density: SCATTERED The breast parenchyma shows scattered fibroglandular densities. Breast parenchyma level B. FINDINGS: Focal asymmetries in the subareolar and inner right breast are unchanged and correlate with cysts on prior ultrasounds. Benign bilateral calcifications are unchanged. There is no suspicious mass, suspicious calcifications, or architectural distortions. IMPRESSION: No evidence of malignancy. BI-RADS CATEGORY: 2 BENIGN FINDING(S) RECOMMENDED FOLLOW-UP: 12M 12 MONTH FOLLOW-UP PQRS compliance statement: Patient information was entered into a reminder system with a target due date for the next mammogram. Mammography is a sensitive method for finding small breast cancers, but it does not detect them all and is not a substitute for careful clinical examination. A negative mammogram does not negate a clinically suspicious finding and should not result in delay in biopsying a clinically suspicious abnormality. "Our facility is accredited by the [employer] Mammography Program."
== END ==
LOC: MAMMO 07:52
PROVIDERS: ATTEND Family Medicine
DX: Z12.31 Encounter for screening mammogram for malignant neoplasm of breast (principal)
CPT/HCPCS: 77067

== ENCOUNTER 2020-10-28 12:48 | Inpatient (IN) | payer MEDICARE ==
[~2020-10-28] VITALS: Ht 172.7 cm; Wt 160.0 kg
[2020-10-28] MEDS ORDERED: ACETAMINOPHEN 325 MG TABLET PO ONE (14:00)
--- NOTE | 2020-10-28 14:06 | PHYS DOC ---
Past History Past Medical History: COPD, Diabetes, Hypertension, Hypothyroid Additional Past Medical Histor: CHRONIC PAIN (NAIA HERNADEZ APRN) Past Surgical History: Cholecystectomy (ANIA HERNADEZ APRN) Smoking: Non-smoker Alcohol Use: Occasionally Drug Use: None (ANIA HERNADEZ APRN) General Adult EDM: Chief Complaint: PAIN CONTROL HPI: HPI: Patient is a 80-year-old female presents with pain. Patient states "I have pain all over". Patient reports taking gabapentin at home with no relief. "I felt so weak this morning I could hardly get out of bed". Patient denies recent fall or injury. Denies chest pain. Denies recent illness. (ANIA HERNADEZ APRN) Review of Systems: Review of Systems: Constitutional: Denies fever or chills Eyes: Denies change in visual acuity HENT: Denies nasal congestion or sore throat Respiratory: Denies cough or shortness of breath Cardiovascular: Denies chest pain or edema GI: Denies abdominal pain, nausea, vomiting, bloody stools or diarrhea : Denies dysuria Musculoskeletal: Reports pain all over Integument: Denies rash Neurologic: Denies headache, focal weakness or sensory changes Endocrine: Denies polyuria or polydipsia Lymphatic: Denies swollen glands Psychiatric: Denies depression or anxiety (ANIA HERNADEZ APRN) Current Medications: Current Meds: Current Medications Medications (Trade) Dose Ordered Sig/Parris Start Time Stop Time Status Last Admin Dose Admin Acetaminophen (Tylenol) 650 mg 1X ONCE 10/28/20 14:00 10/28/20 14:01 DC (ANIA HERNADEZ APRN) Allergies: Allergies: Allergies Coded Allergies Type Severity Reaction Last Updated Verified Penicillins Allergy Intermediate Hives 08/01/16 Yes macadamia nut oil Allergy Unknown 08/01/16 Yes (ANIA HERNADEZ APRN) Physical Exam: PE: Constitutional: Well developed, well nourished, no acute distress, non-toxic appearance. [] HENT: Normocephalic, atraumatic, bilateral external ears normal, oropharynx moist, no oral exudates, nose normal. [] Eyes: PERRLA, EOMI, conjunctiva normal, no discharge. [] Neck: Normal range of motion, no tenderness, supple, no stridor. [] Cardiovascular:Heart rate regular rhythm, no murmur [] Lungs & Thorax: Bilateral breath sounds clear to auscultation [] Abdomen: Bowel sounds normal, soft, no tenderness, no masses, no pulsatile ma sses. [] Skin: Warm, dry, no erythema, no rash. [] Back: No tenderness, no CVA tenderness. [] Extremities: No tenderness, no cyanosis, no clubbing, ROM intact, no edema. [] Neurologic: Alert and oriented X 3, normal motor function, normal sensory function, no focal deficits noted. [] Psychologic: Affect normal, judgement normal, mood normal. [] (ANIA HERNADEZ APRN) Current Patient Data: Vital Signs: Vital Signs Date Time Temp Pulse Resp B/P (MAP) Pulse Ox O2 Delivery O2 Flow Rate FiO2 10/28/20 13:00 97.9 90 18 116/67 93 Nasal Cannula 3.0 (ANIA HERNADEZ APRN) EKG: EKG: [] (ANIA HERNADEZ APRN) Radiology/Procedures: Radiology/Procedures: [] (ANIA HERNADEZ APRN) Heart Score: C/O Chest Pain: No Risk Factors: Risk Factors: DM, Current or recent (<one month) smoker, HTN, HLP, family history of CAD, obesity. Risk Scores: Score 0 - 3: 2.5% MACE over next 6 weeks - Discharge Home Score 4 - 6: 20.3% MACE over next 6 weeks - Admit for Clinical Observation Score 7 - 10: 72.7% MACE over next 6 weeks - Early Invasive Strategies (ANIA HERNADEZ APRN) Course & Med Decision Making: Course & Med Decision Making Pertinent Labs and Imaging studies reviewed. (See chart for details) [] 80-year-old female presents with generalized, chronic pain. Patient states that she has pain all over and had weakness this morning. Patient states that she lives at home with her and had him call EMS. Patient reports that she took gabapentin this morning with little relief. Patient denies any injury or recent illness. States that she is unable to get out of bed or walk. Patient given Tylenol. BUN 68. Creatinine 3.2. All other labs unremarkable. NS bolus given. 4 mg of morphine given for pain. I contacted Dr. Lugo. Dr. Lugo wants to keep patient overnight for further management. Discussed admission plan with patient. Patient and both agree that patient needs to stay overnight due to weakness and pain control. (ANIA HERNADEZ APRN) Course & Med Decision Making I was the Attending physician on the above date of service of this patient. This patient was evaluated, examined, treated, and dispositioned from the emergency department by the mid-level practitioner. I personally saw patient and repeated certain aspects of history and physical exam. I recommended contacting primary care physician who also serves as hospitalist to review course for admission versus transfer Electronically signed, Kim Fernandes DO (KIM FERNANDES DO) [place] Disclaimer: [place] Disclaimer: This electronic medical record was generated, in whole or in part, using a voice recognition dictation system. (ANIA HERNADEZ APRN) Departure Departure: Impression: Primary Impression: Weakness Additional Impression: Acute pain Disposition: ADMITTED INPATIENT Admitting Physician: Yari Mancuso (ANIA HERNADEZ APRN) Condition: STABLE Referrals: YARI MANCUSO MD (PCP) ANIA HERNADEZ APRN Oct 28, 2020 14:05 KIM FERNANDES DO Oct 29, 2020 13:10
[2020-10-28 14:18] LABS: BASO # 0.1 x10^3/uL (0.0-0.2); BASO % 1 % (0-3); EOS % 0 % (0-3); HEMATOCRIT 37.7 % (36.0-47.0); HEMOGLOBIN 12.5 g/dL (12.0-15.5); LYMPH # 0.1 x10^3/uL (1.0-4.8); LYMPH % 2 % (24-48); MEAN CORPUSCULAR HEMOGLOBIN 32 pg (25-35); MEAN CORPUSCULAR HGB CONC 33 g/dL (31-37); MEAN CORPUSCULAR VOLUME 95 fL (79-100); MONO # 0.4 x10^3/uL (0.0-1.1); MONO % 4 % (0-9); NEUT # 8.8 x10^3uL (1.8-7.7); NEUT % 94 % (31-73); PLATELET COUNT 130 x10^3/uL (140-400); RED BLOOD COUNT 3.97 x10^6/uL (3.50-5.40); RED CELL DISTRIBUTION WIDTH 13.5 % (11.5-14.5); WHITE BLOOD COUNT 9.4 x10^3/uL (4.0-11.0)
--- NOTE | 2020-10-28 14:32 | EKG ---
[address] [address] Test Date: 2020-10-28 Test Time: 14:13:06 Pat Name: DEIRDRE REESE Department: Room: Gender: F Medical Record Consultant: PADILLA : 1940 Requested By: ANIA HERNADEZ Order Number: [id number] Reading MD: Measurements Intervals [place] Rate: 87 P: 48 CA: 168 QRS: -30 QRSD: 162 T: -7 QT: 376 QTc: 459 Interpretive Statements SINUS RHYTHM ABNORMAL LEFT AXIS DEVIATION LEFT ANTERIOR FASCICULAR BLOCK RIGHT BUNDLE BRANCH BLOCK BIFASCICULAR BLOCK RVH WITH REPOLARIZATION ABNORMALITY ABNORMAL ECG RI6.02 No previous ECG available for comparison
[2020-10-28 14:33] LABS: ALBUMIN 2.7 g/dL (3.4-5.0); ALBUMIN/GLOBULIN RATIO 0.9 (1.0-1.7); CREATININE 3.2 mg/dL (0.6-1.0); POTASSIUM 4.1 mmol/L (3.5-5.1); TOTAL BILIRUBIN 0.7 mg/dL (0.2-1.0); TOTAL PROTEIN 5.6 g/dL (6.4-8.2)
[2020-10-28 14:38] LABS: CALCIUM 7.9 mg/dL (8.5-10.1)
[2020-10-28] MEDS ORDERED: MORPHINE SULFATE 4 MG/ML DISP.SYRIN. IV ONE (14:45)
[2020-10-28] MEDS ORDERED: IV NORMAL SALINE 1,000ML 1,000 ML IV ONE (15:15)
[2020-10-28] MEDS: IV NORMAL SALINE 1,000ML 1,000 ML IV SCH (19:18)
[2020-10-29 05:27] VITALS: BP 143/68
[2020-10-29] MEDS: MORPHINE SULFATE 2 MG/ML DISP.SYRIN. IV PRN ×3 (06:33→13:43)
[2020-10-29] MEDS: NYSTATIN TOPICAL POWDER 15GM BOTTLE. TP SCH ×2 (08:00→21:45)
[2020-10-29] MEDS ORDERED: traMADol 50 MG TABLET PO PRN (09:00)
[2020-10-29] MEDS ORDERED: predniSONE 20 MG TABLET PO SCH (09:00)
[2020-10-29] MEDS ORDERED: FUROSEMIDE 40 MG TABLET PO SCH ×2 (09:00→13:45)
[2020-10-29] MEDS ORDERED: ALBUTEROL SULFATE 2.5 MG/3 ML NEBU. IH PRN (09:00)
[2020-10-29] MEDS ORDERED: NON FORMULARY ITEM (Tramadol Hcl/Acetaminophen (Tramadol-Acetaminophn 37.5-325) 1 TAB) PO PRN (09:00)
[2020-10-29] MEDS ORDERED: ALBUTEROL SULFATE 2.5 MG/3 ML NEBU. NEB PRN (09:00)
[2020-10-29] MEDS: LEVOTHYROXINE 100 MCG TABLET PO SCH (09:59)
[2020-10-29] MEDS: OMEGA-3 FATTY ACIDS/FISH OIL 1,000 MG CAPSULE. PO SCH (09:59)
[2020-10-29] MEDS: GLIMEPIRIDE 2 MG TABLET PO SCH (10:00)
[2020-10-29] MEDS: GABAPENTIN 300 MG CAPSULE. PO SCH ×3 (10:00→21:00)
[2020-10-29] MEDS: METOPROLOL TART IMMED RELEASE 50 MG TABLET PO SCH ×2 (10:00→21:00)
[2020-10-29] MEDS ORDERED: fentaNYL 12MCG/HR 1 PATCH PATCH TD SCH (10:00)
[2020-10-29] MEDS: cloNIDine HCL 0.1 MG TABLET PO SCH ×2 (10:00→21:00)
[2020-10-29 10:59] VITALS: BP 129/65
[2020-10-29] MEDS: ENOXAPARIN ** NOTE DOSE ** SYRINGE SQ SCH (11:42)
[2020-10-29] MEDS: methylPREDNISolone SOD SUCC PF 40 MG/ML VIAL. IV SCH ×2 (13:42→21:46)
[2020-10-29] MEDS ORDERED: VANCOMYCIN PER PHARMACY MC PRN (13:45)
[2020-10-29] MEDS: FUROSEMIDE 40 MG/4 ML VIAL IVP SCH (13:46)
[2020-10-29 14:10] LABS: BILIRUBIN,URINE MOD (NEG); CLARITY,URINE CLOUDY; COLOR,URINE YELLOW; GLUCOSE,URINE NEG (NEG); NITRITE,URINE POS (NEG)
[2020-10-29 14:11] LABS: BACTERIA,URINE 0 /HPF (0-FEW); GRANULAR CASTS,URINE MANY /HPF; SQUAMOUS EPITHELIAL CELL,UR FEW /LPF
[2020-10-29 14:12] LABS: AMORPHOUS SEDIMENT,UR PRESENT /HPF
--- NOTE | 2020-10-29 14:15 | HP ---
HISTORY OF PRESENT ILLNESS: A 80-year-old female who came in through the Emergency Room with increased severe pain 9-12/08. It is kind of a generalized pain throughout the patient's body. She was unable to move without excruciating pain that one could sense with any movement. She has been taking gabapentin at home without any relief. She could not get out of bed without assistance and without severity of pain. She was admitted for severe pain. Later on, we found cellulitis to her right lower leg, which looked significant that might be instigating some of this like a septic type of pain syndrome. PAST MEDICAL HISTORY: Lymphedema, hypercholesterolemia, respiratory disorders, COPD, oxygen administration 2 liters, abdominal surgery, intestinal surgery, type 2 diabetes, partial thyroidectomy, tetanus shot and pneumococcal vaccines all up to date as is her COVID. ALLERGIES: ADVERSE REACTION TO PENICILLIN, MACADAMIA AND OILS. SOCIAL HISTORY: The patient denies smoking, alcohol or drug use. Full code. Mother , Alzheimer's disease. REVIEW OF SYSTEMS: The patient unable to give any type of history except for moaning and groaning because of the severity of the pain. OBJECTIVE: GENERAL: This is a well-developed, well-nourished, overweight female in excruciating pain. VITAL SIGNS: Blood pressure 120/70, respiratory rate 18-20, pulse 90, afebrile, 3 liters at 93. HEENT: The patient's head was atraumatic, normocephalic. Eyes: PERRLA, without jaundice. Poor dentition noted. NECK: Supple, but very difficult to move. LUNGS: Diminished, poor movement of air. CARDIOVASCULAR: Regular sinus rhythm. The patient otherwise unremarkable. ABDOMEN: The patient's abdomen is very protuberant, markedly overweight. EXTREMITIES: Massive edema, chronic lymphedema, made worse. Toes swollen as are the feet and lower legs, especially the right lower leg that looks infected with cellulitis. Pulses are hard to feel in the lower extremities. NEUROLOGIC: She is alert but extremely difficult for her to even express any verbal acknowledgement. LABORATORY DATA: The patient's white count 9, hemoglobin 12, hematocrit 37, platelets low at 130. Sed rate approximately almost 60. C-reactive protein 470. Blood sugars 150. Lactic acid 1.9. Sodium, potassium, 142, 4.1, 68, 3.2, albumin 2.7. UA is still pending. SARS negative. ASSESSMENT AND PLAN: Cellulitis to the right lower leg, severe lymphedema, severe acute intractable pain, despite IV morphine started on a fentanyl patch as she cannot even ask for pain relief when she has it. The patient's UA, chest x-rays are pending. We will continue to monitor her accordingly, give her pain medication, control her blood pressure, it has gone up to 180/90 with some IV hydralazine, started on vancomycin and continue to monitor her accordingly. SANTINO/GONZALO DR: Anh TID: [id number]
[2020-10-29 15:00] VITALS: BP 96/63
[2020-10-29] MEDS ORDERED: VANCOMYCIN 2 GM in IV NORMAL SALINE 500ML 500 ML IV ONE (15:00)
[2020-10-29 16:40] VITALS: BP 104/66
--- NOTE | 2020-10-29 17:28 | RAD ---
EXAM: Chest, single view. HISTORY: Shortness of breath. COMPARISON: None. FINDINGS: A frontal view of the chest is obtained. There is diffuse interstitial infiltrate. There ar e suspected trace pleural effusions. There is a prominent cardiac silhouette. There is no pneumothora x. There is incidental advanced degenerative change involving both glenohumeral joints. IMPRESSION: Diffuse interstitial infiltrate with suspected small pleural effusions and mild cardiomeg raysa. Correlate for congestion. Electronically signed by: Caitie Ortiz MD (10/29/2020 5:25 PM) [id number]
[2020-10-29] MEDS: IV NORMAL SALINE 1,000ML 1,000 ML IV SCH (20:30)
[2020-10-29 20:36] VITALS: BP 137/78
[2020-10-29] MEDS: SIMVASTATIN 20 MG TABLET PO SCH (21:00)
[2020-10-29] MEDS ORDERED: IPRATRPIUM/ALBUTEROL 0.5/2.5MG 3 ML NEBU. NEB ONE (21:30)
[2020-10-29] MEDS ORDERED: FUROSEMIDE 20 MG/2 ML VIAL IVP ONE (22:00)
[2020-10-29 23:55] VITALS: BP 120/67
[2020-10-30] MEDS: MORPHINE SULFATE 2 MG/ML DISP.SYRIN. IV PRN ×2 (04:16→20:43)
[2020-10-30] MEDS: LEVOTHYROXINE 100 MCG TABLET PO SCH (05:57)
[2020-10-30] MEDS: methylPREDNISolone SOD SUCC PF 40 MG/ML VIAL. IV SCH ×3 (05:57→20:43)
[2020-10-30 06:19] VITALS: BP 151/84
[2020-10-30] MEDS: ENOXAPARIN ** NOTE DOSE ** SYRINGE SQ SCH (08:18)
[2020-10-30] MEDS: FUROSEMIDE 40 MG/4 ML VIAL IVP SCH (08:18)
[2020-10-30] MEDS: GLIMEPIRIDE 2 MG TABLET PO SCH (08:18)
[2020-10-30] MEDS: GABAPENTIN 300 MG CAPSULE. PO SCH ×3 (08:19→20:30)
[2020-10-30] MEDS: MULTIVITAMIN with MINERAL TABLET. PO SCH (08:19)
[2020-10-30] MEDS: cloNIDine HCL 0.1 MG TABLET PO SCH ×2 (08:19→20:30)
[2020-10-30] MEDS: METOPROLOL TART IMMED RELEASE 50 MG TABLET PO SCH ×2 (08:19→20:30)
[2020-10-30] MEDS: OMEGA-3 FATTY ACIDS/FISH OIL 1,000 MG CAPSULE. PO SCH (08:19)
[2020-10-30] MEDS: NYSTATIN TOPICAL POWDER 15GM BOTTLE. TP SCH ×2 (08:22→20:43)
[2020-10-30 10:47] VITALS: BP 97/61
[2020-10-30] MEDS ORDERED: levoFLOXacin PER PHARMACY 1 EACH. MC PRN (11:00)
[2020-10-30] MEDS ORDERED: FUROSEMIDE 40 MG/4 ML VIAL IVP SCH (11:00)
[2020-10-30] MEDS ORDERED: NALOXONE 0.4 MG/ML VIAL. IV ONE ×3 (11:30→12:30)
[2020-10-30 13:52] LABS: CALCIUM 8.1 mg/dL (8.5-10.1); GFR 10.8; POTASSIUM 4.6 mmol/L (3.5-5.1)
[2020-10-30 14:18] VITALS: BP 135/62
[2020-10-30] MEDS: AA 4.25 %/CALCIUM/LYTES/D5W 1,000 ML IV SCH (14:38)
[2020-10-30] MEDS ORDERED: AA 4.25 %/CALCIUM/LYTES/D5W 1,000 ML IV SCH (15:30)
[2020-10-30] MEDS: SIMVASTATIN 20 MG TABLET PO SCH (20:30)
[2020-10-30 20:38] VITALS: BP 152/73
[2020-10-31] VITALS (11 sets, daily range): BP systolic 113–175; BP diastolic 56–86
[2020-10-31] MEDS: AA 4.25 %/CALCIUM/LYTES/D5W 1,000 ML IV SCH ×2 (03:11→16:22)
[2020-10-31] MEDS: MORPHINE SULFATE 2 MG/ML DISP.SYRIN. IV PRN (04:56)
[2020-10-31] MEDS: LEVOTHYROXINE 100 MCG TABLET PO SCH (05:44)
[2020-10-31] MEDS: methylPREDNISolone SOD SUCC PF 40 MG/ML VIAL. IV SCH ×2 (05:51→13:08)
[2020-10-31] MEDS ORDERED: DEXTROSE 50% 25 GM / 50ML DISP.SYRIN. IV ONE ×2 (08:00→08:01)
[2020-10-31] MEDS ORDERED: DIGOXIN IV 500 MCG/2 ML AMPUL. IV ONE (08:30)
[2020-10-31] MEDS: GLIMEPIRIDE 2 MG TABLET PO SCH (09:00)
[2020-10-31] MEDS: NYSTATIN TOPICAL POWDER 15GM BOTTLE. TP SCH (09:00)
[2020-10-31] MEDS: GABAPENTIN 300 MG CAPSULE. PO SCH ×2 (09:00→13:09)
[2020-10-31] MEDS ORDERED: FUROSEMIDE 20 MG/2 ML VIAL IVP SCH (09:00)
[2020-10-31] MEDS: METOPROLOL TART IMMED RELEASE 50 MG TABLET PO SCH (09:00)
[2020-10-31] MEDS ORDERED: IV NORMAL SALINE 1,000ML 1,000 ML IV SCH (09:00)
[2020-10-31] MEDS: cloNIDine HCL 0.1 MG TABLET PO SCH (09:00)
[2020-10-31] MEDS: MULTIVITAMIN with MINERAL TABLET. PO SCH (09:00)
[2020-10-31] MEDS ORDERED: METOPROLOL TARTRATE 5 MG/5 ML VIAL. IV SCH (09:00)
[2020-10-31] MEDS: OMEGA-3 FATTY ACIDS/FISH OIL 1,000 MG CAPSULE. PO SCH (09:00)
--- NOTE | 2020-10-31 09:01 | PDOC2 ---
GRETA KEN JAMARI 10/31/20 0901: CARDIAC CONSULT DATE OF CONSULT DOS: DATE: 10/31/20 TIME: 08:59 REASON FOR CONSULT Reason for Consult Tachycardia REFERRING PHYSICIAN Referring Physician Dr. Vieyra SOURCE Source: Caregiver, Chart review HPI History of Present Illness This is a 80 yo female who presented secondary to uncontrolled pain. She went into the AFIB with RVR, which prompted this consult. Patient reported "all over". Was taking gabapentin, but this has not not been affective. She reported weakness due to the pain and was unable to get out of bed without assistance. Patient presently drowsy, moaning on NRB. Unable to provide any meaningful history. Has been treated for right lower extremity cellulitis. Had also received morphine and had fentanyl patch for uncontrolled pain. Pain medications have been discontinued at patient has been less responsive. PAST MEDICAL HISTORY Cardiovascular: hyperipidemia Pulmonary: COPD Endocrine: Diabetes PAST SURGICAL HISTORY Past Surgical History: Other (partial thyroidectomy, intestinal surgery ) FAMILY HISTORY Family History: Family History Unknown SOCIAL HISTORY Smoke: No ALCOHOL: none Drugs: None Lives: with Family CURRENT MEDICATIONS Current Medications Current Medications Acetaminophen (Tylenol) 650 mg 1X ONCE PO Last administered on 10/28/20at 14:12; Start 10/28/20 at 14:00; Stop 10/28/20 at 14:01; Status DC Morphine Sulfate (Morphine 4mg Syringe) 4 mg 1X ONCE IV Last administered on 10/28/20at 15:16; Start 10/28/20 at 14:45; Stop 10/28/20 at 14:46; Status DC Sodium Chloride 1,000 ml @ 1,000 mls/hr 1X ONCE IV Last administered on 10/28/20at 15:15; Start 10/28/20 at 15:15; Stop 10/28/20 at 16:14; Status DC Sodium Chloride 1,000 ml @ 75 mls/hr [id number] IV Last administered on 10/29/20at 20:30; Start 10/28/20 at 15:30; Stop 10/29/20 at 15:29; Status DC Nystatin (Nystop) 1 roland BID TP Last administered on 10/30/20at 20:43; Start 10/29/20 at 08:00 Morphine Sulfate (Morphine 2mg Syringe) 2 mg PRN Q2HR PRN IV SEVERE PAIN 7-10 Last administered on 10/31/20at 04:56; Start 10/29/20 at 06:00 Albuterol Sulfate (Ventolin) 2.5 mg PRN Q4HRS PRN NEB SHORTNESS OF BREATH Last administered on 10/29/20at 21:46; Start 10/29/20 at 09:00 Albuterol Sulfate (Ventolin) 18 mg PRN Q4HRS PRN IH FOR ASTHMA; Start 10/29/20 at 09:00; Stop 10/29/20 at 09:14; Status DC Clonidine HCl (Catapres) 0.1 mg BID PO Last administered on 10/29/20at 10:00; Start 10/29/20 at 09:00 Furosemide (Lasix) 40 mg DAILY PO Last administered on 10/29/20at 09:59; Start 10/29/20 at 09:00; Stop 10/29/20 at 13:33; Status DC Gabapentin (Neurontin) 300 mg TID PO Last administered on 10/29/20at 13:42; Start 10/29/20 at 09:00 Glimepiride (Amaryl) 2 mg DAILY PO Last administered on 10/29/20at 10:00; Start 10/29/20 at 09:00 Metoprolol Tartrate (Lopressor) 50 mg BID PO Last administered on 10/29/20at 10:00; Start 10/29/20 at 09:00 Prednisone (Prednisone) 10 mg DAILY PO ; Start 10/29/20 at 09:00; Stop 10/29/20 at 10:02; Status DC Simvastatin (Zocor) 20 mg QHS PO ; Start 10/29/20 at 21:00 Tramadol HCl (Ultram) 50 mg PRN Q6HRS PRN PO PAIN; Start 10/29/20 at 09:00 Fish Oil (Fish Oil) 1,000 mg DAILY PO Last administered on 10/29/20at 09:59; Start 10/29/20 at 09:00 Levothyroxine Sodium (Synthroid) 200 mcg DAILY06 PO Last administered on 10/29/20at 09:59; Start 10/29/20 at 09:00 Multivitamins/ Calcium (Thera-M Plus) 1 tab DAILY PO ; Start 10/30/20 at 09:00 Non-Formulary Medication (Tramadol Hcl/ Acetaminophen (Tramadol-Acetaminophn 37.5-325)) 1 tab Q4-6HRS PRN PO PAIN; Start 10/29/20 at 09:00; Stop 10/29/20 at 09:14; Status DC Fentanyl (Duragesic 12mcg/ Hr) 1 patch Q3DAYS TD Last administered on 10/29/20at 11:41; Start 10/29/20 at 10:00 Methylprednisolone Sodium Succinate (SOLU-Medrol 40MG VIAL) 40 mg Q8HRS IV Last administered on 10/31/20at 05:51; Start 10/29/20 at 14:00 Enoxaparin Sodium (Lovenox 60mg Syringe) 60 mg Q24H SQ Last administered on 10/30/20at 08:18; Start 10/29/20 at 10:00 Furosemide (Lasix) 40 mg DAILY PO ; Start 10/29/20 at 13:45; Stop 10/29/20 at 13:40; Status DC Vancomycin HCl (Vanco Per Pharmacy) 1 each PRN DAILY PRN MC SEE COMMENTS Last administered on 10/29/20at 15:15; Start 10/29/20 at 13:45 Furosemide (Lasix) 40 mg DAILY IVP Last administered on 10/30/20at 08:18; Start 10/29/20 at 14:00; Stop 10/30/20 at 15:19; Status DC Vancomycin HCl 2 gm/Sodium Chloride 500 ml @ 250 mls/hr 1X ONCE IV Last administered on 10/29/20at 15:15; Start 10/29/20 at 15:00; Stop 10/29/20 at 16:59; Status DC Vancomycin HCl 1.5 gm/Sodium Chloride 500 ml @ 250 mls/hr Q48H IV ; Start 10/31/20 at 15:00 Vancomycin HCl (Vancomycin Trough Level) 1 each 1X ONCE MC ; Start 11/02/20 at 14:30; Stop 11/02/20 at 14:31 Furosemide (Lasix) 20 mg 1X ONCE IVP Last administered on 10/29/20at 21:46; Start 10/29/20 at 22:00; Stop 10/29/20 at 22:01; Status DC Albuterol/ Ipratropium (Duoneb) 3 ml 1X ONCE NEB ; Start 10/29/20 at 21:30; Stop 10/29/20 at 21:38; Status DC Levofloxacin/ Dextrose (Levaquin Per Pharmacy) 1 each PRN DAILY PRN MC SEE COMMENTS; Start 10/30/20 at 11:00 Furosemide (Lasix) 40 mg DAILY IVP ; Start 10/30/20 at 11:00; Stop 10/30/20 at 12:31; Status DC Furosemide (Lasix) 20 mg DAILY IVP ; Start 10/31/20 at 09:00 Levofloxacin/ Dextrose 150 ml @ 100 mls/hr Q48H IV Last administered on 10/30at 12:54; Start 10/30/20 at 12:00 Naloxone HCl (Narcan) 0.4 mg 1X ONCE IV Last administered on 10/30/20at 11:45; Start 10/30/20 at 11:30; Stop 10/30/20 at 11:41; Status DC Naloxone HCl (Narcan) 0.4 mg 1X ONCE IV Last administered on 10/30/20at 12:09; Start 10/30/20 at 12:00; Stop 10/30/20 at 12:01; Status DC Naloxone HCl (Narcan) 0.4 mg 1X ONCE IV Last administered on 10/30/20at 12:30; Start 10/30/20 at 12:30; Stop 10/30/20 at 12:31; Status DC Amino Acids/ Electrolytes/ Dextrose 1,000 ml @ 80 mls/hr [id number] IV Last administered on 10/31/20at 03:11; Start 10/30/20 at 13:15 Amino Acids/ Electrolytes/ Dextrose 1,000 ml @ 80 mls/hr [id number] IV ; Start 10/30/20 at 15:30; Status UNV Dextrose (Dextrose 50%-Water Syringe) 12.5 gm 1X ONCE IV Last administered on 10/31/20at 08:04; Start 10/31/20 at 08:00; Stop 10/31/20 at 08:01; Status DC Dextrose (Dextrose 50%-Water Syringe) 25 gm STK-MED ONCE IV ; Start 10/31/20 at 08:01; Stop 10/31/20 at 08:02; Status DC Digoxin (Lanoxin) 500 mcg 1X ONCE IV Last administered on 10/31/20at 08:37; Start 10/31/20 at 08:30; Stop 9/2/21 at 08:34; Status DC Active Scripts Active Ultram (Tramadol HCl) 50 Mg Tablet 50 Mg PO PRN Q6HRS PRN Prednisone 20 Mg Tablet 10 Mg PO DAILY 30 Days take one a day and then cut in half after the 5th day stay on that till rtc. Reported Metoprolol Tartrate 50 Mg Tablet 1 Tab PO BID last dose this morning next dose tonight Tramadol-Acetaminophn 37.5-325 (Tramadol Hcl/Acetaminophen) 1 Each Tablet 1 Tab PO Q4-6HRS PRN may use as needed Albuterol Sulfate Neb Soln (Albuterol Sulfate) 2.5 Mg/3 Ml Vial.neb 1 Vial NEB PRN Q4HRS use as needed Ventolin Hfa Inhaler (Albuterol Sulfate) 18 Gm Hfa.aer.ad 1 Puff IH PRN Q4HRS PRN use as needed Multivitamins (Multivitamin) 1 Each Tablet 1 Tab PO DAILY last dose this morning next dose tomorrow [place] 3-6-9 1,200 mg Softgel (Fish Oil/Borage/Flax/Om3,6,9#1) 1,200 Mg Capsule 1,200 Mg PO DAILY last dose this morning next dose tomorrow Simvastatin 20 Mg Tablet 1 Tab PO QHS last dose last night next dose tonight Levothyroxine Sodium 200 Mcg Tablet 1 Tab PO DAILY last dose this morning next dose tomorrow Glimepiride 2 Mg Tablet 1 Tab PO DAILY last dose this morning next dose tomorrow Gabapentin (Gabapentin) 300 Mg Capsule 300 Mg PO TID last dose this morning next dose this afternoon Furosemide 40 Mg Tablet 1 Tab PO DAILY last dose this morning next dose tomorrow Clonidine Hcl 0.1 Mg Tablet 1 Tab PO BID last dose this morning next dose tonight ALLERGIES Allergies: Coded Allergies: Penicillins (Verified Allergy, Intermediate, Hives, 08/01/16) macadamia nut oil (Verified Allergy, Unknown, 08/01/16) ROS Review of Systems unobtainable PHYSICAL EXAM General: mild distress HEENT: Atraumatic, Mucous membr. moist/pink Lungs: Other (diminished ) Heart: Other (AFIB with RVR ) Extremities: Other (1+ bilateral LE edema. RLE erythema ) Neuro: Other (unable to assess ) Psych/Mental Status: Other (drowsy, moaning, not following commands ) MUSCULOSKELETAL: Osteoarthritic changes both hands VITALS Vital Signs Vital Signs Date Time Temp Pulse Resp B/P (MAP) Pulse Ox O2 Delivery O2 Flow Rate FiO2 10/31/20 08:37 163 175/63 10/31/20 05:32 96.5 24 93 Simple Mask 10.0 LABS LABS Laboratory Tests Test 10/29/20 10:23 10/29/20 11:52 10/29/20 12:30 10/29/20 16:27 Lactic Acid Level 1.9 mmol/L (0.4-2.0) Glucose (Fingerstick) 159 mg/dL (70-99) 174 mg/dL (70-99) Urine Collection Type Unknown Urine Color Yellow Urine Clarity Cloudy Urine pH 5.0 Urine Specific [place] >=1.030 Urine Protein 100 mg/dl (NEG-TRACE) Urine Glucose (UA) Neg mg/dL (NEG) Urine Ketones (Stick) Trace mg/dL (NEG) Urine Blood Mod (NEG) Urine Nitrite Pos (NEG) Urine Bilirubin Mod (NEG) Urine Urobilinogen Dipstick 4.0 mg/dL (0.2 mg/dL) Urine Leukocyte Esterase Small (NEG) Urine RBC 1-2 /HPF (0-2) Urine WBC 5-10 /HPF (0-4) Urine Squamous Epithelial Cells Few /LPF Urine Calcium Phosphate Crystals Present /HPF Urine Amorphous Sediment Present /HPF Urine Bacteria 0 /HPF (0-FEW) Urine Granular Casts Many /HPF Urine Mucus Marked /LPF Test 10/29/20 19:15 10/30/20 07:47 10/30/20 11:19 10/30/20 13:39 Glucose (Fingerstick) 168 mg/dL (70-99) 137 mg/dL (70-99) 108 mg/dL (70-99) Sodium Level 140 mmol/L (136-145) Potassium Level 4.6 mmol/L (3.5-5.1) Chloride Level 103 mmol/L (98-107) Carbon Dioxide Level 27 mmol/L (21-32) Anion Gap 10 (6-14) Blood Urea Nitrogen 101 mg/dL (7-20) Creatinine 4.0 mg/dL (0.6-1.0) Estimated GFR (Cockcroft-Gault) 10.8 Glucose Level 133 mg/dL (70-99) Calcium Level 8.1 mg/dL (8.5-10.1) Test 10/30/20 16:34 10/31/20 07:48 10/31/20 08:19 Glucose (Fingerstick) 116 mg/dL (70-99) 57 mg/dL (70-99) 106 mg/dL (70-99) ECHOCARDIOGRAM Echocardiogram <Conclusion> Left ventricle systolic function is low normal. The Ejection Fraction is 50-55%. Wall motion not well visualized. Grossly no obvious abnormalities noted. Technically difficult study. DATE: 08/03/16 112 ASSESSMENT/PLAN Assessment/Plan 1. Acute on chronic respiratory failure with underlying COPD; on NRB. COVID negative 2. MONICA; Cr ^ 4.0 3. AFIB with RVR; new onset suspected due to respiratory compromise. s/p IV Dig and metoprolol 4. Acute on chronic probably diastolic CHF; s/p IV Lasix 5. Metabolic encephalopathy 6. Accelerated hypertension; labile 7. Hyperlipidemia; on statin 8. Diabetes, II 9. Morbid obesity, chronic LE lymphedema, right LE cellulitis 10. Intractable pain Recommendations Add scheduled metoprolol for rate control ABG. may need BiPAP Blood cultures IVFs Avoid nephrotoxins D/c Lovenox with renal failure. Can use heparin for VTE prophylaxis Transfer to ICU when bed available DIONI GARY MD 10/31/20 1710: CARDIAC CONSULT ASSESSMENT/PLAN Assessment/Plan Pt. seen and examined. Agree with above MANAGER IMAGE Note. She likely needs intubation, defer to family and primary team regarding code status. Check limited echo. Continue abx for possible UTI. GRETA KEN APRN Oct 31, 2020 09:01 DIONI GARY MD Oct 31, 2020 17:10
[2020-10-31] MEDS: ENOXAPARIN ** NOTE DOSE ** SYRINGE SQ SCH (09:15)
[2020-10-31] MEDS ORDERED: hydrALAZINE 20 MG/ML VIAL. IV PRN (10:15)
--- NOTE | 2020-10-31 11:17 | PN ---
SUBJECTIVE: This is a 80-year-old female who has been very sedated, and we have given her 3 amps of Narcan, taken her off her fentanyl patch and morphine for now. The patient is more responsive. We are in dire need of giving her some nutritional supplement, so she has been started on the nutritional bag of AA 4.25% Clinimix. Otherwise, the patient is a little bit more alert. She had been, I think, over sedated, perhaps accumulation of medications, but seems to be doing better. Her renal function has shown that she is dehydrated, stop the Lasix and increase fluids through the clinics. She has been given some boluses of fluid to maintain urinary output. Otherwise, the patient is a little bit more alert and was able to answer a question or two. She continues on IV antibiotic therapy of vancomycin and Levaquin, cellulitis of the legs especially the right lower leg and a possible pneumonitis type picture. OBJECTIVE: VITAL SIGNS: Otherwise, blood pressure that of 135/62, respiratory rate 22, pulse 80, afebrile, 93% on 4 liters. GENERAL: The patient otherwise is still very comatose. LUNGS: Diminished throughout, poor movement of air. CARDIOVASCULAR: Regular sinus rhythm. ABDOMEN: Protuberant. EXTREMITIES: Markedly swollen and markedly erythematous, right greater than the left of stasis dermatitis perhaps along with cellulitis. We will continue therapy with that and make further assessment, perhaps with wound clinic. IMPRESSION: 1. Cellulitis of the right lower leg. 2. Severe lymphedema. 3. Severe acute intractable pain. 4. Pneumonitis. 5. Acute on top of chronic kidney disease stage IV. 6. Dehydration. 7. Change in mental status secondary to medication. PLAN: We will make the above-mentioned adjustments. SANTINO/ESEQUIEL/MARILYNN DR: SANTINO/latha TID: [id number]
[2020-10-31 11:40] LABS: BGAS PH 7.18 (7.35-7.45)
--- NOTE | 2020-10-31 12:16 | RAD ---
EXAM: AP View of the chest DATE: 10/31/2020 8:38 AM INDICATION: Reason: TACHYCARDIA / Spl. Instructions: / History: COMPARISON: No Prior FINDINGS: Bandlike opacities right midlung. Perihilar and lung base opacities bilaterally. Moderate cardiomegal y is stable. Atherosclerotic calcifications of the tortuous aorta are seen. Atherosclerotic calcifica tions of the aorta.No right pleural effusion. Trace left pleural effusion. No pneumothorax. IMPRESSION: 1. New right midlung bandlike opacities likely scarring/atelectasis. Otherwise bilateral perihilar a nd lung base opacities are grossly stable. 2. Stable cardiomegaly. Trace left pleural effusion. Electronically signed by: Fazal Hood MD (10/31/2020 12:14 PM) [facility]
[2020-10-31 12:25] LABS: BASO % 0 % (0-3); EOS # 0.1 x10^3/uL (0.0-0.7); EOS % 2 % (0-3); HEMOGLOBIN 11.6 g/dL (12.0-15.5); LYMPH # 0.2 x10^3/uL (1.0-4.8); LYMPH % 4 % (24-48); MEAN CORPUSCULAR HEMOGLOBIN 32 pg (25-35); MEAN CORPUSCULAR HGB CONC 33 g/dL (31-37); MEAN CORPUSCULAR VOLUME 96 fL (79-100); MONO # 0.1 x10^3/uL (0.0-1.1); MONO % 3 % (0-9); NEUT # 4.2 x10^3uL (1.8-7.7); NEUT % 92 % (31-73); PLATELET COUNT 90 x10^3/uL (140-400); RED BLOOD COUNT 3.66 x10^6/uL (3.50-5.40); RED CELL DISTRIBUTION WIDTH 13.6 % (11.5-14.5); WHITE BLOOD COUNT 4.6 x10^3/uL (4.0-11.0)
--- NOTE | 2020-10-31 12:27 | EKG ---
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
[2020-10-31] MEDS ORDERED: SODIUM BICARB ADULT 8.4% 50 MEQ/50 ML DISP.SYRIN. IV ONE ×2 (12:30→18:15)
[2020-10-31 12:32] LABS: CALCIUM 8.2 mg/dL (8.5-10.1); CREATININE 2.9 mg/dL (0.6-1.0); GFR 15.7; POTASSIUM 4.8 mmol/L (3.5-5.1)
[2020-10-31 12:54] LABS: BGAS PH 7.22 (7.35-7.45)
[2020-10-31] MEDS: METOPROLOL TARTRATE 5 MG/5 ML VIAL. IV SCH ×2 (13:06→18:00)
[2020-10-31] MEDS ORDERED: FUROSEMIDE 20 MG/2 ML VIAL IVP ONE (13:30)
[2020-10-31] MEDS ORDERED: HEPARIN for SUB-Q USE 5,000 UNIT/ML VIAL. SQ SCH (14:00)
[2020-10-31 14:55] LABS: % BANDS 4 % (0-9); % LYMPHS 8 % (24-48); % MONOS 4 % (0-10); % SEGS 84 % (35-66); MICROCYTOSIS SLIGHT; PLATELET CLUMP PRESENT; PLT ESTIMATE ADEQUATE (ADEQUATE)
[2020-10-31] MEDS ORDERED: VANCOMYCIN 1.5 GM in IV NORMAL SALINE 500ML 500 ML IV SCH (15:00)
[2020-10-31 15:39] LABS: BGAS PH 7.23 (7.35-7.45)
[2020-10-31] MEDS ORDERED: PROPOFOL 100 ML IV ONE (17:58)
[2020-10-31] MEDS ORDERED: MIDAZOLAM HCL PF 5 MG/5 ML VIAL. ONE ×2 (17:58→18:30)
[2020-10-31] MEDS ORDERED: ROCURONIUM 50 MG/5 ML VIAL. IV ONE (18:30)
[2020-10-31] MEDS ORDERED: MIDAZOLAM HCL PF 5 MG/5 ML VIAL. IV ONE ×2 (18:30→20:05)
[2020-10-31] MEDS ORDERED: PROPOFOL 100 ML IV PRN (18:30)
[2020-10-31] MEDS ORDERED: ROCURONIUM 50 MG/5 ML VIAL. ONE (18:30)
--- NOTE | 2020-10-31 18:57 | RAD ---
Exam: Chest one view INDICATION: Endotracheal tube placement TECHNIQUE: Frontal view of the chest Comparisons: 10/31/2020 FINDINGS: Endotracheal tube with tip at the jamir. Enteric tube traverses below the diaphragm distal extent no t visualized. Heart is mildly enlarged. Pulmonary vessels are within normal limits. The lung and pleural spaces are clear. IMPRESSION: Endotracheal tube with tip at the jamir. Recommend retracting 3 to 5 cm. Electronically signed by: Lance Navarro MD (10/31/2020 6:55 PM) [facility]
--- NOTE | 2020-10-31 18:58 | RAD ---
Exam: Abdomen one view INDICATION: OG placement TECHNIQUE: Supine view the abdomen Comparisons: None FINDINGS: Enteric tube with tip in the upper midabdomen. No dilated loops of bowel are identified. IMPRESSION: Enteric tube with tip likely in the mid stomach. Electronically signed by: Lance Navarro MD (10/31/2020 6:56 PM) [facility]
[2020-10-31 19:12] LABS: BGAS PH 7.33 (7.35-7.45)
[2020-10-31] MEDS ORDERED: LACTOBACILLUS RHAMNOSUS GG 1 CAPSULE. PO SCH (21:00)
--- NOTE | 2020-11-01 02:31 | PN ---
SUBJECTIVE: A 80-year-old female came in with severe pain, severe shortness of breath, renal failure. The patient has basically lost consciousness in terms of her normal self. She had to be moved to the ICU for critical care, as the patient's oxygenation dropped, she will be placed on BiPAP. The patient also had a run of atrial fibrillation with RVR, rates up to 163, given Lanoxin and then metoprolol to slow down her heart rate. The patient is on 10 liters through BiPAP and stable as it could be septic. The patient is receiving vancomycin every 48 hours and Levaquin has been adjusted by the [facility]. The patient otherwise seems to be at peace now, she is resting comfortably. Discussed with the family, the said she did not ever want to be intubated, right now does not appear to be, although her last blood gas was showing respiratory acidosis. We gave her half amp of bicarbonate, it has helped her pH come up a little bit more. We will repeat a blood gas here. She has been on the BiPAP for some time and see if we improved on that, looks like she is retaining CO2 and may need a mechanism of removing CO2 from her. She is slightly alert. She did not seem to recognize her who came in to express his love for her, but obviously the patient is still critical. She still is in the ICU. OBJECTIVE: VITAL SIGNS: Blood pressure 137/80, respiratory 28-30, pulse anywhere from 160, down to 77; afebrile, 97. Oxygen sat 89 on a BiPAP. GENERAL: The patient otherwise seems to be resting fairly comfortably. LUNGS: Diminished, poor movement of air, but clear. Chest x-ray does not show anything obvious. ABDOMEN: Soft, protuberant. EXTREMITIES: The right leg is markedly swollen and erythematous. Her hands are swollen and erythematous. It really pains to move any joint and this has been another problem of titrating pain medication without over sedating her as well. Looked into IV Tylenol as she cannot swallow. The patient otherwise is in critical condition and will be monitored here carefully in the unit. IMPRESSION: Probable sepsis, respiratory acidosis, respiratory failure, atrial fibrillation with rapid ventricular response, essential hypertension, loss of consciousness, metabolic encephalopathy, acute renal failure. PLAN: The patient will be gently diuresed. She is also receiving additional nutritional supplement as she is not able to eat with this BiPAP and her state of consciousness is markedly deteriorated, presently on AA 4.25% calcium like D5W ____. We will continue to monitor patient carefully and make further evaluation as indicated here in the unit. We will note that the patient is a DNI. SANTINO/HILLARY/BENNY DR: SANTINO/latha TID: [id number]
--- NOTE | 2020-11-01 10:04 | CARD ---
MR#: [id number] Date of Study: 10/31/2020 Ordering Physician: DIONI GARY, Referring Physician: DIONI GARY, Tech: Gennaro Mc [facility] APPROVED REPORT EXAM: Two-dimensional and M-mode echocardiogram with Doppler and color Doppler. Other Information Quality : FairHR: 66bpm Rhythm : NSRTechnically limited study due to body habitus.body habitus and smoking. INDICATION Dyspnea RISK FACTORS Hypertension Obesity Hyperlipidemia Diabetes Smoking LEFT VENTRICLE The left ventricle is normal size. There is mild concentric left ventricular hypertrophy. The left ve ntricular systolic function is normal. The ejection fraction is estimated at 55%. There is normal LV segmental wall motion. No left ventricle thrombus noted on this study. There is no ventricular septal defect visualized. There is no left ventricular aneurysm. There is no mass noted in the left ventric le. RIGHT VENTRICLE The right ventricle is normal size. There is normal right ventricular wall thickness. The right ventr icular systolic function is normal. ATRIA The left atrium size is normal. The right atrium size is normal. The interatrial septum is intact wit h no evidence for an atrial septal defect or patent foramen ovale as noted on 2-D or Doppler imaging. AORTIC VALVE The aortic valve is probably trileaflet. Doppler and Color Flow revealed no significant aortic regurg itation. There is no significant aortic valvular stenosis. There is no aortic valvular vegetation. MITRAL VALVE The mitral valve is normal in structure and function. There is no evidence of mitral valve prolapse. There is no mitral valve stenosis. Doppler and Color Flow revealed no mitral valve regurgitation note d. TRICUSPID VALVE The tricuspid valve is normal in structure and function. Doppler and Color Flow revealed mild tricusp id regurgitation. The PA pressure was estimated at 58 mmHg. There is no tricuspid valve prolapse or v egetation. There is no tricuspid valve stenosis. PULMONIC VALVE The pulmonary valve is normal in structure and function. Doppler and Color Flow revealed no pulmonic valvular regurgitation. There is no pulmonic valvular stenosis. GREAT VESSELS The aortic root is normal in size. The ascending aorta is normal in size. The pulmonary artery is nor mal. The IVC is severly dilates with no inspiration response. PERICARDIAL EFFUSION There is no pleural effusion. There is no evidence of significant pericardial effusion. <Conclusion> Technically difficult study. The left ventricular systolic function is normal. The ejection fraction is estimated at 55%. There is normal LV segmental wall motion. Mild tricuspid regurgitation. The PA pressure was estimated at 58 mmHg. There is no evidence of significant pericardial effusion. Signed by : Karl Hughes, Electronically Approved : 11/01/2020 10:03:43
== END 2020-10-31 20:15 | disposition short-term general hospital (02) | DRG 871 ==
LOC: ER 12:48 → 1 SOUTH 10-29 02:18 → ICU 10-31 11:51
PROVIDERS: ADMIT Family Medicine; ATTEND Family Medicine
DX: A41.9 Sepsis, unspecified organism (principal); G93.41 Metabolic encephalopathy; J18.9 Pneumonia, unspecified organism; J96.20 Acute and chronic respiratory failure, unspecified whether with hypoxia or hypercapnia; J44.0 Chronic obstructive pulmonary disease with (acute) lower respiratory infection; L03.115 Cellulitis of right lower limb; L03.116 Cellulitis of left lower limb; N17.9 Acute kidney failure, unspecified; N18.4 Chronic kidney disease, stage 4 (severe); Z68.43 Body mass index [BMI] 50.0-59.9, adult; E03.9 Hypothyroidism, unspecified; E11.22 Type 2 diabetes mellitus with diabetic chronic kidney disease; E66.01 Morbid (severe) obesity due to excess calories; I89.0 Lymphedema, not elsewhere classified; I12.9 Hypertensive chronic kidney disease with stage 1 through stage 4 chronic kidney disease, or unspecified chronic kidney disease; E78.00 Pure hypercholesterolemia, unspecified; E78.5 Hyperlipidemia, unspecified; E86.0 Dehydration; I48.91 Unspecified atrial fibrillation; Z20.822 Contact with and (suspected) exposure to COVID-19; Z82.0 Family history of epilepsy and other diseases of the nervous system; G89.29 Other chronic pain; Z90.49 Acquired absence of other specified parts of digestive tract; Z88.0 Allergy status to penicillin; Z88.8 Allergy status to other drugs, medicaments and biological substances
CPT/HCPCS: 36415; 36600; 71045; 74018; 80048; 80053; 81001; 82803; 82947; 83605; 83735; 84484; 85007; 85025; 85651; 86140; 87040; 87077; 87086; 87186; 87205; 87426; 93005; 93308; 94002; 94640; 94660; 96361; 96374; J1160; J1644; J1650; J1940; J1956; J2250; J2270; J2310; J2920; J3370; J3490; J7040; U0003; 99285-25; J7030; J7613